=== PATIENT | male | born 1945 | race Two or more races ===

== ENCOUNTER 2020-06-11 10:14 | Inpatient (IN) | payer OTHER ==
[~2020-06-11] VITALS: Ht 172.7 cm; Wt 92.1 kg
[2020-06-11] MEDS ORDERED: CLEOCIN HCL300 MG PO (10:26)
[2020-06-11] MEDS ORDERED: ABATINEX680 MG PO (10:26)
[2020-06-11] MEDS ORDERED: PROTONIX40 MG PO (10:27)
[2020-06-11] MEDS ORDERED: NAPR500T14 PO (10:27)
[2020-06-11] MEDS ORDERED: AMOX1TAB5 PO (10:28)
[2020-06-11] MEDS ORDERED: MUPIROCIN1 G1 TP (10:28)
[2020-06-16] MEDS ORDERED: INTESTINEX680 M1 PO (09:37)
[2020-06-16] MEDS ORDERED: CLONAZEPAM0.5 MG PO (09:37)
[2020-06-16] MEDS ORDERED: LOSARTAN POTASS50 MG PO (09:37)
[2020-06-16] MEDS ORDERED: CLOTRIMAZOLE28 GM TOP (09:37)
[2020-06-16] MEDS ORDERED: FLUCONAZOLE200 MG PO (09:37)
[2020-06-16] MEDS ORDERED: DUI500 PO (09:37)
[2020-06-16] MEDS ORDERED: AMLODIPINE BESYL5 MG PO (09:37)
[2020-06-16] MEDS ORDERED: PROTONIX40 MG PO (09:37)
[2020-06-16] MEDS ORDERED: ZYVOX PO (09:37)
== END 2020-06-16 17:32 | disposition home or self-care (01) | DRG 603 ==
LOC: ER 10:14 → MEDI 18:40 → SEC-K 22:52 → MEDI 22:53
PROVIDERS: ADMIT Internal Medicine; ATTEND Internal Medicine
PROC: B44FZZZ Ultrasonography of Right Lower Extremity Arteries (ICD-10-PCS; principal; 2020-06-12)
DX: L03.115 Cellulitis of right lower limb (principal); I10 Essential (primary) hypertension; L80 Vitiligo; B35.3 Tinea pedis; Z20.828 Contact with and (suspected) exposure to other viral communicable diseases

== ENCOUNTER 2020-06-22 10:57 | Emergency (ER) | payer OTHER ==
[~2020-06-22] VITALS: Ht 172.7 cm; Wt 92.1 kg
[~2020-06-22 10:57] MED LIST: ABATINEX680 MG PO; AMLODIPINE BESYL5 MG PO; AMOX1TAB5 PO; CLEOCIN HCL300 MG PO; CLONAZEPAM0.5 MG PO; CLOTRIMAZOLE28 GM TOP; DUI500 PO; FLUCONAZOLE200 MG PO; INTESTINEX680 M1 PO; LOSARTAN POTASS50 MG PO; MUPIROCIN1 G1 TP; NAPR500T14 PO; PROTONIX40 MG PO; ZYVOX PO
[2020-06-22] MEDS ORDERED: COZAAR50 MG PO (11:38)
[2020-06-22] MEDS ORDERED: NORVASC5 MG PO (11:39)
[2020-06-22] MEDS ORDERED: ZYVOX100 MG/5 M PO (11:39)
[2020-06-22] MEDS ORDERED: INTESTINEX680 M1 PO (11:40)
[2020-06-22] MEDS ORDERED: CEFADROXIL500 MG PO (11:40)
== END 2020-06-22 15:10 | disposition home or self-care (01) ==
LOC: ER 10:57
DX: L03.115 Cellulitis of right lower limb (principal); S80.11XS Contusion of right lower leg, sequela; W22.8XXS Striking against or struck by other objects, sequela; Z03.818 Encounter for observation for suspected exposure to other biological agents ruled out